=== PATIENT | male | born 1955 | race Caucasian/White ===

== ENCOUNTER 2024-02-16 16:56 | Inpatient (IN) | payer OTHER, MEDICARE ==
[2024-02-16] MEDS ORDERED: VANCOMYCIN 1 GM/VIAL ONE (17:46)
[2024-02-16] MEDS ORDERED: NA CHLORIDE 0.9% 250 ML ONE (17:47)
[2024-02-16] MEDS ORDERED: CIPROFLOXACIN 400mg IV 400 MG/200 ML BAG IV ONE (17:47)
[2024-02-16] MEDS ORDERED: ONDANSETRON 4 MG/2 ML VIAL ONE (18:09)
[2024-02-16] MEDS ORDERED: MORPHINE 4 MG/ML SYR ONE (18:10)
[2024-02-16 18:20] LABS: Absolute Eosinophils 0.1 K/uL (0-0.5); Absolute Lymphocytes (CBC) 1.1 K/uL (0.7-4.9); Absolute Monocytes 0.7 K/uL (0.1-1.3); Absolute Neutrophil 9.8 K/uL (1.8-8.0); Basophils % 0.4 % (0-1.3); Eosinophils % 1.2 % (0-4.4); Hematocrit 40.9 % (39.6-49.0); Hemoglobin 13.6 g/dL (13.6-17.9); Lymphocytes % 9.6 % (15.3-44.8); MCH 31.8 pg (27.0-35.0); MCHC 33.3 g/dL (32.0-36.0); MCV 95.5 fL (80-100); MPV 6.7 fL (7.6-11.3); Monocytes % 5.9 % (3.3-12.3); Neutrophils % 82.9 % (41.7-73.7); Platelets 191 thou/uL (152-406); RBC Red Blood Cell Count 4.29 M/uL (4.33-5.43)
[2024-02-16 18:25] LABS: PTT, Activated Partial Thromb 31.4 SECONDS (24.3-36.9); Protime INR 1.17
[2024-02-16 18:35] LABS: Albumin 3.4 g/dL (3.4-5.0); Anion Gap 9.6 mEq/L (5.0-15.0); Bilirubin Total 0.9 mg/dL (0.2-1.0); Globulin 3.5 g/dL (2.3-3.5); Potassium 3.6 mEq/L (3.5-5.1); Protein, Total 6.9 g/dL (6.4-8.2); Troponin High Sensitivity 4.6 pg/mL (<58.9)
--- NOTE | 2024-02-16 18:39 | EDPHYS ---
Physician Documentation [facility] Name: Jimmy Corona Age: 68 yrs Sex: Male : 1955 Arrival Date: 02/16/2024 Time: 16:56 Bed 12 Private MD: ED Physician Susan Kan HPI: 02/15 17:22 This 68 yrs old Male presents to ER via Ambulatory with complaints of cellulitis. sb4 17:23 The patient presents with cellulitis of the chin. Description: draining, swollen, warm. sb4 Onset: The symptoms/episode began/occurred 2 day(s) ago. Possible cause(s): ingrown hair. Associated signs and symptoms: The patient has no apparent associated signs or symptoms. Modifying factors: the symptoms are alleviated by nothing, the symptoms are aggravated by nothing. The patient has experienced similar episodes in the past, a few times. The patient has been recently seen by a physician: a general surgeon, earlier today, with similar presenting complaints, and was sent to the [facility] Emergency Department for further evaluation. Historical: - Allergies: 17:17 No Known Allergies; ll1 - PMHx: 17:17 Diabetes - NIDDM; Hyperlipidemia; Hypertension; Myocardial infarction; Hypothyroidism; ll1 - PSHx: 17:17 Coronary artery bypass graft; R ankle sx, B knees; ll1 - Immunization history:: Adult Immunizations up to date. - Infectious Disease History:: infectious process, pt can't remember name. - Social history:: Smoking status: Patient denies any tobacco usage or history of. ROS: 17:23 Constitutional: Negative for fever, chills, and weight loss, sb4 17:23 Skin: Positive for abscess, cellulitis, of the chin, 17:23 All other systems are negative, Exam: 17:23 Constitutional: This is a well developed, well nourished patient who is awake, alert, sb4 and in no acute distress. Eyes: Extra-ocular motions intact. Periorbital areas with no swelling, redness, or edema. ENT: Mucous membranes moist. 17:23 Head/Face: Normocephalic, atraumatic. 17:23 Head/face: 17:23 Skin: abscess, that is moderate sized, of the chin, with drainage, with surrounding cellulitis, Vital Signs: 17:15 BP 112 / 78; Pulse 76; Resp 16; Temp 98.4; Pulse Ox 99% on R/A; Weight 81.65 kg; Height ll1 5 ft. 9 in. ; 17:30 BP 101 / 65; Pulse 73; Resp 18; Pulse Ox 97% on R/A; tl4 18:00 BP 112 / 64; Pulse 76; Resp 19; Pulse Ox 96% on R/A; tl4 18:30 BP 108 / 66; Pulse 75; Resp 18; Pulse Ox 95% on R/A; tl4 19:00 BP 109 / 65; Pulse 70; Resp 14; Pulse Ox 96% on R/A; tl4 19:30 BP 109 / 64; Pulse 67; Resp 17; Temp 98.2(O); Pulse Ox 97% on R/A; tl4 17:15 Body Mass Index 26.58 (81.65 kg, 175.26 cm) ll1 MDM: 17:10 Patient medically screened. sb4 17:26 Data reviewed: vital signs, nurses notes, lab test result(s), EKG, radiologic studies, sb4 I have discussed the patient's presentation/case with the attending Emergency Department Physician; and as a result, I will admit patient. Consideration of Admission/Observation Patient was admitted/placed on observation. Care significantly affected by the following chronic conditions: Diabetes, Hypertension. Counseling: I had a detailed discussion with the patient and/or guardian regarding the historical points, exam findings, and any diagnostic results supporting the discharge/admit diagnosis, lab results, radiology results, the need for further work-up and treatment in the hospital. 02/15 17:21 Order name: Blood Culture Adult (2) 4 02/15 17:21 Order name: CBC with Diff; Complete Time: 18:31 sb4 02/15 17:21 Order name: CMP; Complete Time: 18:36 sb4 02/15 17:21 Order name: Lactate w/ 2H reflex if indic.; Complete Time: 18:34 sb4 02/15 17:21 Order name: Protime (+inr); Complete Time: 18:31 sb4 02/15 17:21 Order name: Ptt, Activated; Complete Time: 18:31 sb4 02/15 17:21 Order name: Troponin High Sensitivity; Complete Time: 18:36 sb4 02/15 17:22 Order name: Wound Culture sb4 02/15 19:10 Order name: Glucose, Ancillary Testing; Complete Time: 19:15 EDMS 02/15 17:21 Order name: Accucheck; Complete Time: 18:58 sb4 02/15 17:21 Order name: Cardiac monitoring; Complete Time: 17:36 sb4 02/15 17:21 Order name: EKG - Nurse/Tech; Complete Time: 18:10 sb4 02/15 17:21 Order name: IV Saline Lock - Large Bore; Complete Time: 18:10 sb4 02/15 17:21 Order name: Labs collected and sent; Complete Time: 18:10 sb4 02/15 17:21 Order name: O2 Per Protocol; Complete Time: 17:36 sb4 02/15 17:21 Order name: O2 Sat Monitoring; Complete Time: 17:36 sb4 02/15 17:21 Order name: Vital Signs; Complete Time: 17:36 sb4 EC:12 Rate is 75 beats/min. Rhythm is regular, Sinus Rhythm with 1st degree heart block. HI sb4 interval is prolonged at 226 msec. QRS interval is normal at 116 msec. QT interval is normal at 404 msec. No Q waves. T waves are Normal. No ST changes noted. Clinical impression: 1st degree heart block and No evidence of ischemia. Interpreted by me. Reviewed by me. Administered Medications: 18:11 Drug: morphine IVP or IV 4 mg IVP once over 4 mins Route: IVP; Infused Over: 4 mins; tl4 Site: left forearm; 18:38 Follow up: Response: No adverse reaction; Pain is decreased tl4 18:11 Drug: Ondansetron IVP 4 mg IVP once; over 2 minutes Route: IVP; Infused Over: 2 mins; tl4 Site: left forearm; 18:38 Follow up: Response: No adverse reaction tl4 18:35 Drug: vancoMYCIN IVPB 1 grams IVPB once over 2 hrs Route: IVPB; Infused Over: 2 hrs; tl4 Site: right forearm; 20:18 Follow up: Response: No adverse reaction; IV Status: Completed infusion; IV Intake: tl4 250ml 18:39 Drug: Ciprofloxacin IVPB 400 mg 200 ml IVPB once over 60 mins Volume: 200 ml; Route: tl4 IVPB; Infused Over: 60 mins; Site: left forearm; 19:30 Follow up: Response: No adverse reaction; IV Status: Completed infusion tl4 18:55 Drug: NS 0.9% IV 1000 ml IV at 1 bolus Per protocol; 1000 mL bolus Route: IV; Rate: 1 tl4 bolus; Site: right forearm; Delivery: Primary tubing; 19:40 Follow up: Response: No adverse reaction; IV Status: Completed infusion; IV Intake: tl4 1000ml Disposition: 19:54 Co-signature as Attending Physician, Susan Kan MD I agree with the assessment and gb1 plan of care. I reviewed the patient's care provided by the Advanced Practice Provider and agree with the diagnosis and treatment plan. Disposition Summary: 02/16/24 18:38 Hospitalization Ordered Notes: Hospitalization Status: Inpatient Admission sb4 Provider: Magy Frias sb4 Location: Telemetry/[facility] (Inpatient) sb4 Condition: Fair sb4 Problem: new sb4 Symptoms: are unchanged sb4 Bed/Room Type: Standard sb4 Room Assignment: 211(02/16/24 18:57) [facility] Diagnosis - Cutaneous abscess of face sb4 - Cellulitis of face sb4 Forms: - Medication Reconciliation Form sb4 - SBAR form sb4 - Leadership Thank You Letter sb4 Signatures: Dispatcher [employer] Becky Perez, RN RN ll1 Maya Ortiz PA-C PA-C sb4 Susan Kan MD MD gb1 Michelle Aguillon [facility] Norman Montalvo RN RN tl4 Corrections: (The following items were deleted from the chart) 17:22 17:22 BLOOD CULTURE*+BA.LAB.BRZ ordered. EDMS EDMS 17:22 17:22 CBC+H.LAB.BRZ ordered. EDMS EDMS 17:22 17:22 COMPREHENSIVE METABOLIC PANEL+C.LAB.BRZ ordered. EDMS EDMS 17:22 17:22 LACTATE+C.LAB.BRZ ordered. EDMS EDMS 17:22 17:22 PROTIME (+INR)+COAG.LAB.BRZ ordered. EDMS EDMS 17:22 17:22 PTT, ACTIVATED+COAG.LAB.BRZ ordered. EDMS EDMS 17:22 17:22 Troponin High Sensitivity+C.LAB.BRZ ordered. EDMS EDMS 17:36 17:23 Skin: abscess, that is small, of the chin, with drainage, with surrounding sb4 cellulitis, sb4 18:57 18:38 sb4 kmf
--- NOTE | 2024-02-16 18:39 | ER ---
Nurse's Notes [facility] Name: Jimmy Corona Age: 68 yrs Sex: Male : 1955 Arrival Date: 02/16/2024 Time: 16:56 Bed 12 Private MD: Diagnosis: Cutaneous abscess of face;Cellulitis of face Presentation: 02/15 17:15 Chief complaint: Patient states: Wound to chin area since Friday. On cefoxitin. ll1 Coronavirus screen: Client denies travel out of the [place] in the last 14 days. Ebola Screen: Patient denies travel to an Ebola-affected area in the 21 days before illness onset. Initial Sepsis Screen: Does the patient meet any 2 criteria? No. Patient's initial sepsis screen is negative. Does the patient have a suspected source of infection? No. Patient's initial sepsis screen is negative. Risk Assessment: Do you want to hurt yourself or someone else? Patient reports no desire to harm self or others. Onset of symptoms was February 13, 2024. 17:15 Method Of Arrival: Ambulatory ll1 17:15 Acuity: ITALIA 3 ll1 Historical: - Allergies: 17:17 No Known Allergies; ll1 - PMHx: 17:17 Diabetes - NIDDM; Hyperlipidemia; Hypertension; Myocardial infarction; Hypothyroidism; ll1 - PSHx: 17:17 Coronary artery bypass graft; R ankle sx, B knees; ll1 - Immunization history:: Adult Immunizations up to date. - Infectious Disease History:: infectious process, pt can't remember name. - Social history:: Smoking status: Patient denies any tobacco usage or history of. Screenin:49 [facility] ED Fall Risk Assessment (Adult) History of falling in the last 3 months, tl4 including since admission No falls in past 3 months (0 pts) Confusion or Disorientation No (0 pts) Intoxicated or Sedated No (0 pts) Impaired Gait No (0 pts) Mobility Assist Device Used No (0 pt) Altered Elimination No (0 pt) Score/Fall Risk Level 0 - 2 = Low Risk Oriented to surroundings, Maintained a safe environment, Educated pt \T\ family on fall prevention, incl call for assistance when getting out of bed, Assessed \T\ reinforced patient's understanding of fall precautions. Abuse screen: Denies threats or abuse. Denies injuries from another. Nutritional screening: No deficits noted. Tuberculosis screening: No symptoms or risk factors identified. Assessment: 18:25 General: Appears uncomfortable, Behavior is calm, cooperative. Pain: Complains of pain tl4 in chin Pain currently is 10 out of 10 on a pain scale. Neuro: Level of Consciousness is awake, alert, obeys commands, Oriented to person, place, time, situation, Moves all extremities. Full function Speech is normal, Facial symmetry appears normal. Cardiovascular: Capillary refill < 3 seconds Patient's skin is warm and dry. Respiratory: Airway is patent Respiratory effort is even, unlabored, Respiratory pattern is regular, symmetrical, Breath sounds are clear bilaterally. GI: No signs and/or symptoms were reported involving the gastrointestinal system. : No signs and/or symptoms were reported regarding the genitourinary system. EENT: No signs and/or symptoms were reported regarding the EENT system. Derm: Abscess located on chin has purulent drainage, has foul odor. Musculoskeletal: No signs and/or symptoms reported regarding the musculoskeletal system. Vital Signs: 17:15 BP 112 / 78; Pulse 76; Resp 16; Temp 98.4; Pulse Ox 99% on R/A; Weight 81.65 kg; Height ll1 5 ft. 9 in. ; 17:30 BP 101 / 65; Pulse 73; Resp 18; Pulse Ox 97% on R/A; tl4 18:00 BP 112 / 64; Pulse 76; Resp 19; Pulse Ox 96% on R/A; tl4 18:30 BP 108 / 66; Pulse 75; Resp 18; Pulse Ox 95% on R/A; tl4 19:00 BP 109 / 65; Pulse 70; Resp 14; Pulse Ox 96% on R/A; tl4 19:30 BP 109 / 64; Pulse 67; Resp 17; Temp 98.2(O); Pulse Ox 97% on R/A; tl4 17:15 Body Mass Index 26.58 (81.65 kg, 175.26 cm) ll1 ED Course: 17:00 Patient arrived in ED. ra3 17:05 Maya Ortiz PA-C is [facility]. sb4 17:05 Susan Kan MD is Attending Physician. sb4 17:09 Norman Montalvo RN is Primary Nurse. tl4 17:17 Triage completed. ll1 17:19 Arm band placed on Patient placed in an exam room, on a stretcher. ll1 18:10 Troponin High Sensitivity Sent. tl4 18:10 CBC with Diff Sent. tl4 18:10 Lactate w/ 2H reflex if indic. Sent. tl4 18:11 CMP Sent. tl4 18:11 Protime (+inr) Sent. tl4 18:11 Ptt, Activated Sent. tl4 18:11 Wound Culture Sent. tl4 18:11 Initial lab(s) drawn, by me, sent to lab. First set of blood cultures drawn EKG done, tl4 by ED staff, reviewed by Maya Ortiz PA-C Wound culture swab sent to lab. Inserted saline lock: 22 gauge in left forearm, using aseptic technique. Blood collected. Flushed with 10 mL NS. 18:37 Magy Frias MD is Hospitalizing Provider. sb4 18:48 Blood Culture Adult (2) Sent. tl4 18:49 Patient has correct armband on for positive identification. Placed in gown. Bed in low tl4 position. Call light in reach. Side rails up X2. Adult w/ patient. Provided Education on: call arguello, ed process. Client placed on continuous cardiac and pulse oximetry monitoring. NIBP monitoring applied. nuclear monitoring technician on. Door closed. Noise minimized. Lights dimmed. Moved to private room. Warm blanket given. Pillow given. 18:49 Second set of blood cultures drawn by me. tl4 18:49 Inserted saline lock: 22 gauge in right forearm, using aseptic technique. Blood tl4 collected. Flushed with 10 mL NS. 19:00 No provider procedures requiring assistance completed. Patient admitted, IV remains in tl4 place. Administered Medications: 18:11 Drug: morphine IVP or IV 4 mg IVP once over 4 mins Route: IVP; Infused Over: 4 mins; tl4 Site: left forearm; 18:38 Follow up: Response: No adverse reaction; Pain is decreased tl4 18:11 Drug: Ondansetron IVP 4 mg IVP once; over 2 minutes Route: IVP; Infused Over: 2 mins; tl4 Site: left forearm; 18:38 Follow up: Response: No adverse reaction tl4 18:35 Drug: vancoMYCIN IVPB 1 grams IVPB once over 2 hrs Route: IVPB; Infused Over: 2 hrs; tl4 Site: right forearm; 20:18 Follow up: Response: No adverse reaction; IV Status: Completed infusion; IV Intake: tl4 250ml 18:39 Drug: Ciprofloxacin IVPB 400 mg 200 ml IVPB once over 60 mins Volume: 200 ml; Route: tl4 IVPB; Infused Over: 60 mins; Site: left forearm; 19:30 Follow up: Response: No adverse reaction; IV Status: Completed infusion tl4 18:55 Drug: NS 0.9% IV 1000 ml IV at 1 bolus Per protocol; 1000 mL bolus Route: IV; Rate: 1 tl4 bolus; Site: right forearm; Delivery: Primary tubing; 19:40 Follow up: Response: No adverse reaction; IV Status: Completed infusion; IV Intake: tl4 1000ml Medication: 20:12 VIS not applicable for this client. tl4 Intake: 19:40 IV: 1000ml; Total: 1000ml. tl4 20:18 IV: 250ml; Total: 1250ml. tl4 Outcome: 18:38 Decision to Hospitalize by Provider. sb4 19:55 Admitted to Med/surg accompanied by nurse, via wheelchair, room 211, tl4 19:55 Condition: stable 19:55 Instructed on the need for admit, 20:16 Patient left the ED. tl4 Signatures: Becky Dutta, RN RN ll1 Maya Ortiz PA-C PA-C sb4 Norman Montalvo RN RN tl4 Polly Ybarra 3
[2024-02-16] MEDS ORDERED: NA CHLORIDE 0.9% 1,000 ML ONE (18:50)
[2024-02-16] MEDS ORDERED: ONDANSETRON 4 MG/2 ML VIAL IV PRN (19:38)
[2024-02-16] MEDS ORDERED: ACETAMINOPHEN 325 MG TABLET PO PRN (19:38)
[2024-02-16 20:47] VITALS: BMI 26.6
[2024-02-16] MEDS: VANCOMYCIN 500 MG in NA CHLORIDE 0.9% 100 ML IVPB ONE (21:32)
[2024-02-16] MEDS: NA CHLORIDE 0.9% 1,000 ML IV SCH (21:32)
[2024-02-16] MEDS: MORPHINE 4 MG/ML SYR IV PRN (23:02)
[2024-02-17] MEDS: INSULIN REGULAR (HUMAN) 100 UNIT/ML SQ SCH (07:30)
--- NOTE | 2024-02-17 07:48 | HP ---
Date of Admission: 02/16/2024 Chief Complaint: Infection. History Of Present Illness: This is a 68-year-old pleasant male patient, who had ingrowing hair type of area on his chin and he was trying to pull it and this area got infected last week on Friday with pain, redness, swelling, and some purulent discharge, so he [facility] a nd was sent home with cephalexin that he started taking it, but did not get better, so yesterday on , 02/16/2024, he saw Dr. Ellison who evaluated him at the office and requested him to come to [facility] emergency room and after he was evaluated in the ER, he was admitted to the hospital with abscess involving the area over his chin. Denies any fever, chills. He has longstanding history of picking on his skin and has history of recurrent sores over skin, sometime it gets infected as he has provide d details in the past. Allergies: NO KNOWN ALLERGIES. Medications: List reviewed. According to that, he is on cyclobenzaprine 10 mg daily, Celebrex 200 m g twice a day, Tylenol No. 3 as needed for pain, Ozempic 2 mg subcutaneous injection once a week, Rep atha injection once a month, duloxetine 60 mg daily, clopidogrel 75 mg daily, iron 142 mg daily, Synj libertad mg daily, Myrbetriq 50 mg daily, metoprolol succinate 25 mg twice a day, levothyroxine 2 00 mcg daily, galantamine 4 mg twice a day, Vascepa 1 g capsule takes 2 capsules 2 times a day, tamsu losin 0.4 mg daily, and VESIcare 10 mg daily. Review of Systems: Dermatology: As mentioned above. All other systems reviewed and negative. Past Medical History: Significant for hypothyroidism, type 2 diabetes mellitus, obstructive sleep ap renny, hypertension, mixed hyperlipidemia, coronary artery disease, history of myocardial infarction in 1997 and 2007, benign prostatic hypertrophy, depression. Past Surgical History: Thyroidectomy which was total thyroidectomy due to Graves disease in 1965, co ronary artery stent placement in 2008, coronary artery bypass surgery in 2008, right hip surgery, lef t knee surgery, right ankle surgery, and surgery on left index finger. Family History: Father , had esophageal cancer, coronary artery disease, diabetes, hypertension, thyroid disorder. Mother has arthritis, coronary artery disease, dementia, stroke, thyroid disorder . Brother with diabetes, thyroid disorder, atrial fibrillation, and gout. Sister with rheumatoid ar thritis and thyroid disorder. Social History: Prior history of smoking. Use of alcohol occasional. Physical Examination: Vital Signs: This morning, temperature 98.7, pulse 64, respiratory rate 18, blood pressure 101/62, o xygen saturation 95%, height 5 feet 9 inches, weight 180 pounds. General: Awake, alert, oriented, not in distress. HEENT: Head atraumatic, normocephalic. Conjunctivae nonerythematous. Sclerae white. Mouth, no thr ush or edema noted. Ears/Nose, no mass, lesion, discharge noted. Neck: Supple. No JVD, lymph nodes, bruit, thyromegaly noted. Lungs: Bilateral good equal air entry. Clear to auscultation. No rhonchi. No rales. Heart: Normal heart sounds, no murmur or gallop. Abdomen: Soft, bowel sounds normal. No guarding, rigidity, tenderness, mass, hepatosplenomegaly, dis tention, or bruit noted. Extremities: No leg edema. No calf tenderness. Skin: The patient's skin over his chin has about 5 cm formed slightly fluctuant swelling. Warm to t ouch and tender to touch. Has about 1 to 2 mm opening in the center with some purulent discharge pre sent at the base. Lymphatics: No lymph node enlargement in neck, supraclavicular, infraclavicular region. Neuro: No focal neurological deficit. Chest: Unremarkable. External Genitalia: Deferred. Rectal: Deferred. Laboratory Data: White count 11.9, hemoglobin 13.6, platelets 191. INR 1.17. Sodium 137, potassium 3.6, chloride 105, bicarb 26, BUN 22, creatinine 0.69, glucose 141, lactic acid 1.2. Liver function tests unremarkable. Impression: 1.Abscess, chin. 2.Hypothyroidism, postsurgical. 3.Type 2 diabetes mellitus. 4.Hypertension. 5.Mixed hyperlipidemia. 6.Coronary artery disease. 7.Depression. 8.Benign prostatic hypertrophy. 9.Obstructive sleep apnea. Plan: We will go ahead and admit the patient to hospital for further evaluation and management of th is problem. The patient is appropriate for inpatient and is expected to spend 2 midnights in [facility]. We will consult Dr. Ellison from General Surgery for surgical management of this abscess and sta rt the patient on empiric antibiotic which is Cipro and vancomycin per order. Pain medications will be given. IV fluid will be given per order. SCD was ordered for DVT prophylaxis. Cardiology consul tation was requested for cardiac clearance and we will keep the patient n.p.o. after midnight. For d iabetes, we will manage that with sliding scale insulin per order. The patient takes anti-platelet t herapy for his coronary artery disease and we will hold it right now and after surgery, we will resta rt it at appropriate time. For hypertension, we will continue metoprolol per order with instruction to hold depending on his blood pressure readings. Hyperlipidemia will not require any further interv ention. For his benign prostatic hypertrophy, we will continue his medication as he takes and no nee d for any further intervention. Details and plan of treatment discussed with him and I will see him tomorrow for followup. Total time spent 80 minutes including communication with emergency room provider, review of emergency room records, review of last office visit record from 09/02/2023, and performing evaluation and brennan gement for this hospital admission. SABINE/MODL Voice ID: [id number]
[2024-02-17] MEDS: CIPROFLOXACIN 400mg IV 400 MG/200 ML BAG IV SCH (08:00)
[2024-02-17] MEDS: NA CHLORIDE 0.9% 1,000 ML ONE (08:05)
--- NOTE | 2024-02-17 08:42 | P.CNS ---
Date of Consult: 02/17/24 Chief Complaint: chin abscess History of Present Illness: Patient with PMH of CAD s/p CABG almost 20 years ago with multiple PCIs, per patient last was done in 2009, presented with chin abscess, requiring incision and drainage, patient mention that he follow up with [facility] medical center, he was last seen almost 6 months ago, he had a stress test almost a year ago and was not told that he need angiogram, also mention he was not diagnosed with heart failure, he is active, he can moan the yard and walk 2 blocks without cardiac symptoms like chest pain or BEAUCHAMP, no palpitations, no syncope. Allergies No Known Allergies Allergy (Unverified 02/16/24 20:05) Home medications list reviewed: Yes Home Medications: Clopidogrel Bisulfate [Plavix] 75 mg PO DAILY 05/29/21 Duloxetine HCl [Cymbalta] 60 mg PO DAILY 05/29/21 Empagliflozin/Metformin HCl [Synjardy Xr 25-1,000 mg Tablet] 1 each PO DAILY 05/29/21 Ferrous Sulfate [Slow Fe] 142 mg PO DAILY 05/29/21 Galantamine HBr [Galantamine ER] 4 mg PO BID 05/29/21 Levothyroxine Sodium [Levoxyl] 200 mcg PO DAILY 05/29/21 Metoprolol Succinate 25 mg PO BID 05/29/21 Mirabegron [Myrbetriq] 50 mg PO DAILY 05/29/21 Tamsulosin HCl [Flomax] 0.4 mg PO DAILY 05/29/21 icosapent ethyL [Vascepa 1 gm Cap] 2 gm PO BID 05/29/21 Solifenacin Succinate [Vesicare] 10 mg PO DAILY 03/04/23 Celecoxib 200 mg PO BID 02/16/24 Codeine/APAP [Tylenol #3*] 1 tab PO PRN PRN 02/16/24 Cyclobenzaprine HCl 10 mg PO DAILY 02/16/24 Evolocumab [Repatha Sureclick] 140 mg DIRECTED 02/16/24 Semaglutide [Ozempic] 2 mg SQ DIRECTED 02/16/24 - Past Medical/Surgical History Diabetic: Yes -: DM -: HTN -: CAD -: Osteoarthritis -: Hyperlipidemia -: Depression -: Hypothyroidism -: BPH -: Thyroidectomy -: CABGx3 -: Right hip replacement -: Left knee replacement -: Right ankle fusion - Social History Alcohol use: No CD- Drugs: No Caffeine use: Yes Place of Residence: Home Review of Systems 10-point ROS is otherwise unremarkable Physical Examination Temp Pulse Resp BP Pulse Ox 97.4 F 66 12 111/55 L 97 02/17/24 08:00 02/17/24 08:00 02/17/24 08:00 02/17/24 08:00 02/17/24 08:00 General: Alert, In no apparent distress HEENT: Atraumatic, PERRLA, Mucous membr. moist/pink, EOMI, Sclerae nonicteric Neck: Supple, 2+ carotid pulse no bruit, No LAD, Without JVD or thyroid abnormality Respiratory: Clear to auscultation bilaterally, Normal air movement Cardiovascular: Regular rate/rhythm, Normal S1 S2 Gastrointestinal: Normal bowel sounds, No tenderness Musculoskeletal: No tenderness Integumentary: No rashes Neurological: Normal gait, Normal speech, Normal tone, Normal affect Lymphatics: No axilla or inguinal lymphadenopathy Laboratory Data (last 24 hrs) 02/16/24 02/16/24 02/16/24 18:04 18:04 18:04 WBC 11.90 H Hgb 13.6 Hct 40.9 Plt Count 191 PT 13.0 H INR 1.17 APTT 31.4 Sodium 137 Potassium 3.6 BUN 22 H Creatinine 0.69 L Glucose 141 H Total Bilirubin 0.9 AST 13 L ALT 23 Alkaline Phosphatase 80 - Problems (1) Preoperative clearance Current Visit: Yes Status: Acute Plan: Patient is active and can do more than 4 METs without cardiac symptoms, per patient he had a stress test almost a year ago and it was normal, also was not told that he have heart failure, we do not have all those informations in hand but looks like he is active with no significant cardiac symptoms. Patient is cleared as low to intermediate cardiac risk for surgery continue Toprol XL will follow up patient after surgery. (2) CAD (coronary artery disease), bypass graft transplanted heart Current Visit: Yes Status: Acute Plan: continue ASA, Statins (3) Hypertension Current Visit: No Status: Acute Plan: continue Toprol XL.
[2024-02-17] MEDS ORDERED: ONDANSETRON 4 MG/2 ML VIAL ONE (08:58)
[2024-02-17] MEDS ORDERED: propofoL 200 MG/20 ML VIAL IV ONE (08:58)
[2024-02-17] MEDS ORDERED: FENTANYL CITR 100 MCG/2 ML ONE (08:58)
[2024-02-17] MEDS ORDERED: LIDOCAINE 2% MPF 5 ML VIAL ONE (08:58)
[2024-02-17] MEDS ORDERED: SOLIFENACIN SUCCIN 5 MG TAB PO SCH (09:00)
[2024-02-17] MEDS: CYCLOBENZAPRINE 10 MG TAB PO SCH (09:00)
[2024-02-17] MEDS: LEVOTHYROXINE SOD 0.1 MG TAB PO SCH ×2 (09:00→12:02)
[2024-02-17] MEDS: METOPROLOL XL 25 MG TAB PO SCH (09:00)
[2024-02-17] MEDS: DULOXETINE 30 MG CAP PO SCH ×2 (09:00→12:01)
[2024-02-17] MEDS ORDERED: CIPROFLOXACIN 400mg IV 400 MG/200 ML BAG IV SCH (09:00)
[2024-02-17] MEDS: MIRABEGRON 50 MG PO SCH (09:00)
[2024-02-17] MEDS: SOLIFENACIN SUCCINATE 10 MG PO SCH (09:00)
[2024-02-17] MEDS: TAMSULOSIN 0.4 MG SR CAP PO SCH ×2 (09:00→12:01)
[2024-02-17] MEDS: GALANTAMINE HBR 8 MG PO SCH (09:00)
--- NOTE | 2024-02-17 09:51 | CON ---
Date of Consultation: 02/17/2024 Reason For Service: Cellulitis of the face, mandible, and chin. History Of Present Illness: This is a case of a 68-year-old patient and he claimed he was working wi th caulking at home and some of that caulking went into his chin. He has a archer there. When he pul led that glue, he ripped off some of the hair. He felt it was not a big deal until suddenly develope d redness over the entire chin area migrating into the mandible and in the mandible angle going into the maxilla. Not only that, but he started having multiple openings with purulent discharge. He tho ught it was getting too fast and out of control, so he came yesterday to my office and I immediately sent him to the ER. He was admitted for IV antibiotics and now for debridement and drainage of that abscess and necrotic wound. We remember him for many years ago, he has an open wound on the face are a. It took a long time to heal. At that moment, I believe we diagnosed him with some pyoderma. I a m not sure the final diagnosis was done since he has to see a supervisor finishing for that, but may not be that far away from that diagnosis of pyoderma gangrenosum. At this moment, we are going to take care of the wound infection, the necrotic tissue, and then after that, continue trying to work in that di agnosis. Past Medical History: Includes heart disease, MIs, hypertension, hypothyroidism, diabetes, non-insul in dependent. Past Surgical History: Surgeries include coronary artery bypass graft, ankle surgery, bilateral knee surgeries. Allergies: NONE. Social History: He does not smoke. He does not drink alcohol. Family History: Heart disease. Review of Systems: Redness and warmth of the face extending into the mandible region, chin, maxillary area. Tenderness in that region and also increased temperature. No shortness of breath. No chest pain. No problems swallowing. Tongue is midline. 10 points are otherwise unremarkable. Physical Examination: General: The patient is awake, alert. HEENT: Pupils are equal and reactive, anicteric. Oral mucosa, tongue is midline. There is a large abscess and necrotic wound in the area of the chin extending to the mandible region. Intraoral looks to be intact. Tongue in the midline and does to be have any drainage, but outside the skin is drain ing purulent discharge consistent with an abscess and necrotic skin. Extending to the arch of the ma ndible and then also inferiorly proximal neck cellulitis. Neck: No JVD. Chest: Bilateral breath sounds. Abdomen: Soft and depressible. Extremities: Good capillary refill. Laboratory Data: Blood work shows WBC count of 11.9 with hemoglobin of 13.6, INR of 1.7, and BUN is 22. Assessment: A 68-year-old patient with cellulitis, abscess, necrotic wound on the face, mandible, ch in area. The patient will go for an excision and debridement with benefits, alternatives, and risks including, but not limited to infection, bleeding, damage to adjacent structures, anesthesia complica tion, nonhealing wound, TN, and even . He also understands this may not relieve any symptoms. He might need more than one surgical intervention. He is on anticoagulation, Plavix, but unfortunate ly the area needs to be clean today and so he is at more risk for bleeding. Once again, we will addr ess that issue as it goes. ADRIANA/SHERRI Voice ID: [id number] Report ID: [id number]
[2024-02-17] MEDS ORDERED: dexAMETHasone 4 MG/ML VIAL ONE (10:24)
[2024-02-17] MEDS: dexAMETHasone 4 MG/ML VIAL ONE (10:25)
--- NOTE | 2024-02-17 10:25 | P.BOP ---
Preoperative diagnosis: necrotic wound, abscess and cellulitis face Postoperative diagnosis: same Primary procedure: Excisional subQ debridement with abscess drainage necrotic facial wound Secondary procedure: 3x3cm Estimated blood loss: <10cc Specimen: necrotic tissue and culture Findings: as above Anesthesia: General Transferred to: Recovery Room Condition: Good
[2024-02-17] MEDS ORDERED: KETOROLAC 30 MG/ML INJ ONE (10:27)
[2024-02-17] MEDS: D5 0.9 NS 1,000 ML IV SCH (11:59)
[2024-02-17] MEDS: VANCOMYCIN 1.5 GM in NA CHLORIDE 0.9% 500 ML IVPB SCH (12:00)
[2024-02-17] MEDS: HYDROCODONE/APAP 5/325 MG TAB PO PRN (12:18)
--- NOTE | 2024-02-17 17:47 | EKG ---
Test Date: 2024-02-16 Test Time: 17:50:08 Pt Sitter: TL MEASUREMENT RESULTS: Intervals: Rate: 75 HI: 226 QRSD: 116 QT: 404 QTc: 451 [place]: P: 63 HI: 226 QRS: 51 T: -29 INTERPRETIVE STATEMENTS: Sinus rhythm with 1st degree AV block Inferior infarct, age undetermined Abnormal ECG No previous ECG available for comparison Electronically Signed On 02-17-24 17:45:11 CDT by Santana Field
--- NOTE | 2024-02-17 18:33 | OP ---
Date of Procedure: 02/17/2024 Surgeon: Troy Ellison MD Preoperative Diagnoses: Necrotic wound abscess and cellulitis of the face, chin, and submandibular r egion and part of the neck. Postoperative Diagnoses: Necrotic wound abscess and cellulitis of the face, chin, and submandibular region and part of the neck. Procedure: Excisional subcutaneous debridement with abscess drainage. Necrotic facial wound about 3 x 3 cm. The cellulitis covered an area about 8 x 6 cm. Estimated Blood Loss: Less than 10 cc. Specimens: Necrotic tissue and culture. Findings: There is necrotic tissue present. Once we removed that necrotic tissue, which is about 3 x 3 cm and the necrotic fat, we noticed multiple loculations. They were explored and opened. Anesthesia: General plus local. Indications: This is a case of a 68-year-old person with an injury on his face developing quickly an infection over the chin area, mandible tracking into the maxilla and also his neck. Immediately, ad mitted to the hospital and started antibiotics and then urgently placed on the OR schedule for an exc ision and debridement of necrotic tissue and drainage of an abscess. The benefits, alternatives, and risks were fully explained, which include, but not limited to infection, bleeding, damage to adjacen t structures, anesthesia complication, recurrence, [place], and even . He also understands this migh t not relieve any symptoms. He might need more than one surgical intervention. He understood and si gned a consent. He understands that area will require wound care and will leave a scar. The area of concern was marked by me and the patient in the holding room. Description Of Procedure: The patient was brought to the operating room, placed in supine position. Anesthesia was done without complication. The face and neck were prepped and draped in usual steril e fashion. A time-out was called. After that, a necrotic tissue was excised with the help of a knif e all the way down to fat tissue and necrotic tissue was sent to the pathologist and culture was obta ined and then we explored some loculations of abscess present. All pus and loculations were drained. The area was profusely irrigated and then after that, after hemostasis of local anesthetic, we pack ed the area with wet-to-dry Iodoform. The patient tolerated the procedure well. The patient was sen t to recovery in stable condition. ADRAINA/SHERRI Voice ID: [id number] Report ID: [id number]
[2024-02-18] MEDS: CLOPIDOGREL 75 MG TABLET PO SCH (09:19)
[2024-02-18] MEDS: VANCOMYCIN 1.5 GM in NA CHLORIDE 0.9% 500 ML IVPB SCH (15:05)
--- NOTE | 2024-02-18 22:57 | PN ---
Date of Progress Note: 02/18/2024 Subjective: The patient was seen this morning for followup. No new complaints or problems reported by the patient. He had incision and drainage procedure done yesterday by Dr. Ellison and he is feel ing lot better. His pain from chin area is lot better. Denies any new complaints. Objective: Vital Signs: Reviewed. He remains afebrile. HEENT: Unremarkable except has surgical dressing present over his chin area. Lungs: Clear to auscultation. Heart: Sounds normal. Abdomen: Soft. Bowel sounds normal. No guarding, rigidity, tenderness, distention. Extremities: No leg edema. Impression: 1.Abscess, chin. 2.Hypertension. 3.Hyperlipidemia. 4.Diabetes mellitus. Plan: We will continue insulin per sliding scale for diabetes control. We will go ahead and continu e current antihypertensive medication. Continue his IV antibiotics and follow up on the wound cultur e and plan is to keep him in the hospital until we get the final results on the wound culture and the n discharge him to go home with appropriate culture-specific antibiotic. Details and plan of treatme nt discussed with him. Discontinue IV fluid. SABINE/MODL Voice ID: [id number] Report ID: [id number]
[2024-02-19 04:55] LABS: Absolute Eosinophils 0.2 K/uL (0-0.5); Absolute Lymphocytes (CBC) 1.5 K/uL (0.7-4.9); Absolute Monocytes 0.4 K/uL (0.1-1.3); Absolute Neutrophil 3.3 K/uL (1.8-8.0); Basophils % 0.6 % (0-1.3); Eosinophils % 3.3 % (0-4.4); Hematocrit 40.2 % (39.6-49.0); Hemoglobin 13.6 g/dL (13.6-17.9); Lymphocytes % 28.3 % (15.3-44.8); MCH 31.9 pg (27.0-35.0); MCHC 33.8 g/dL (32.0-36.0); MCV 94.3 fL (80-100); MPV 6.4 fL (7.6-11.3); Monocytes % 7.8 % (3.3-12.3); Platelets 216 thou/uL (152-406); RBC Red Blood Cell Count 4.27 M/uL (4.33-5.43); Red Cell Distribution Width 13.1 % (12.1-15.2)
[2024-02-19 04:59] LABS: Anion Gap 7.9 mEq/L (5.0-15.0); Magnesium 2.1 mg/dL (1.6-2.4); Potassium 3.9 mEq/L (3.5-5.1)
[2024-02-19 11:32] VITALS: O2SAT 96
--- NOTE | 2024-02-19 18:09 | PN ---
Reason For Service: Cellulitis of the face with necrotic wound, status post debridement. Subjective: The patient is doing well, improving, the swelling is down. The erythema is a lot less. Objective: Vital Signs: Stable. Face: Necrotic wound present, status post debridement. There is no fluctuance or crepitus. The swe lling around the area is improved. There is no crepitus. Swelling is down too. Tongue is in the mi dline. Neck: Supple. Plan: Cultures are still pending. Preliminary shows gram-positive cocci. We advised him and kallie trejo to him and the need for wet-to-dry dressing. [facility]. They should call for appointment time. Continue wet to dry until he sees us once a gain at the [facility]. Antibiotics will be directed depending on the culture. ADRIANA/SHERRI Voice ID: [id number] Report ID: [id number]
[2024-02-20 08:22] VITALS: BP 123/66; TEMP 97
--- NOTE | 2024-02-20 13:00 | DS ---
Date of Discharge: 02/20/2024 Disposition: Discharged to go home. Physical Examination: HEENT: Unremarkable except the patient has surgical dressing present over chin, which was removed an d has open wound which was noted to have packing in place, surrounding skin induration involving ____ area around the wound, but otherwise, no tenderness, no redness. No active discharge or bleed ing. Lungs: Clear to auscultation. Heart: Sounds normal. Abdomen: Soft. Bowel sounds normal. No guarding, rigidity, tenderness, distention. Extremities: No leg edema. Laboratory Data: Upon admission; white count 11.9, hemoglobin 13.6, platelets 191. Yesterday; white count 5.5, hemoglobin 13.6, platelets 216. For chemistry yesterday; sodium 141, potassium 3.9, chlo ride 111, bicarb 26, BUN 16, creatinine 0.82, glucose 95, magnesium 2.1. Upon admission; chemistry s hows sodium 137, potassium 3.6, chloride 105, bicarb 26, BUN 22, creatinine 0.69, glucose 141. Lacti c acid 1.2. Liver function tests unremarkable. Final Diagnoses: 1.Abscess, chin, organism Staphylococcus aureus. 2.Hypothyroidism, postsurgical. 3.Type 2 diabetes mellitus. 4.Hypertension. 5.Mixed hyperlipidemia. 6.Coronary artery disease. 7.Depression. 8.Benign prostatic hypertrophy. 9.Obstructive sleep apnea. Hospital Course: This is a 68-year-old very pleasant male patient who came into emergency room and w as evaluated and admitted to the hospital with abscess over his chin area. Please see dictated H and P for more details. After patient was admitted to the hospital, he was started on empiric IV antibi otic which was Cipro and vancomycin. Dr. Ellison from General Surgery was consulted and he did inci vicky and drainage and debridement of this area. Postoperatively, wound care dressing changes were pr ovided as per instruction from Dr. Ellison and we continued his Cipro and vancomycin. Wound culture was sent and final result came back today and it is Staphylococcus aureus and it is not MRSA and it is sensitive to Cipro, vancomycin, etc. Since patient has been on Cipro, we will go ahead and plan t o discharge him to go home with Cipro. The patient's will be providing dressing changes as she has done this for him in the past and she feels comfortable doing so. Total time spent today was 40 minutes. SABINE/MODL Voice ID: [id number] Report ID: [id number]
--- NOTE | 2024-02-20 16:51 | PN ---
Date of Progress Note: 02/19/2024 Subjective: Patient was seen this morning for followup. No new complaints or problems reported by t he patient. Lying in bed, not in any distress. Objective: HEENT: Unremarkable except surgical dressing present over chin area. Lungs: Clear to auscultation. Heart: Sounds normal. Abdomen: Soft. Bowel sounds normal. No guarding, rigidity, tenderness, distention. Extremities: No leg edema. Laboratory Data: White count 5.5, hemoglobin 13.6, platelets 216. Sodium 141, potassium 3.9, chlori de 111, bicarb 26, BUN 16, creatinine 0.82, glucose 95, magnesium 2.1. Wound culture growing gram-po sitive cocci, definite identification and sensitivity result pending. Impression: 1.Abscess, chin. 2.Coronary artery disease. 3.Hypertension. 4.Diabetes mellitus. 5.Hypothyroidism. Plan: We will continue current medical management. Continue current empiric antibiotic which is Cip ro and vancomycin and once we get the final results on culture result, plan is to discharge him to go home with culture specific antibiotic. SABINE/MODL Voice ID: [id number] Report ID: [id number]
== END 2024-02-20 11:39 | disposition home or self-care (01) | DRG 264 ==
LOC: ER 16:56 → ERHOLD 18:41 → 2ND 19:46
PROVIDERS: ADMIT Internal Medicine; ATTEND Internal Medicine
PROC: 0JB10ZZ Excision of Face Subcutaneous Tissue and Fascia, Open Approach (ICD-10-PCS; principal; 2024-02-17 09:45)
DX: E11.52 Type 2 diabetes mellitus with diabetic peripheral angiopathy with gangrene (principal); L02.01 Cutaneous abscess of face; K12.2 Cellulitis and abscess of mouth; L03.211 Cellulitis of face; I10 Essential (primary) hypertension; E78.2 Mixed hyperlipidemia; F32.A Depression, unspecified; E89.0 Postprocedural hypothyroidism; G47.33 Obstructive sleep apnea (adult) (pediatric); N40.0 Benign prostatic hyperplasia without lower urinary tract symptoms; I25.10 Atherosclerotic heart disease of native coronary artery without angina pectoris; I25.2 Old myocardial infarction; B95.61 Methicillin susceptible Staphylococcus aureus infection as the cause of diseases classified elsewhere; Z95.1 Presence of aortocoronary bypass graft; Z95.5 Presence of coronary angioplasty implant and graft; Z79.02 Long term (current) use of antithrombotics/antiplatelets; Z79.899 Other long term (current) drug therapy; Z79.890 Hormone replacement therapy; Z96.641 Presence of right artificial hip joint; Z96.652 Presence of left artificial knee joint
CPT/HCPCS: 36415; 80048; 80053; 80202; 82947; 83605; 83735; 84484; 85025; 85610; 85730; 87040; 87070; 87075; 87205; 88304; 93005; 94010; 99285; J0744; J1100; J2001; J2405; J2704; J3010; J7030; J7040; J7042; J7050